=== PATIENT | male | born 1960 | race Two or more races ===

== ENCOUNTER 2020-10-12 14:45 | Outpatient (CLI) | payer OTHER | END 2020-10-12 14:53 | disposition home or self-care (01) | LOC: RAD 14:45 → TOM 15:15 | PROVIDERS: ATTEND Neurological Surgery | DX: M54.2 Cervicalgia (principal); G89.4 Chronic pain syndrome; M54.5 Low back pain; M13.0 Polyarthritis, unspecified; M47.817 Spondylosis without myelopathy or radiculopathy, lumbosacral region; M47.22 Other spondylosis with radiculopathy, cervical region; M48.02 Spinal stenosis, cervical region; F31.89 Other bipolar disorder; M43.8X9 Other specified deforming dorsopathies, site unspecified ==